=== PATIENT | male | born 1935 | race Caucasian/White ===

== ENCOUNTER 2022-05-25 21:22 | Emergency (ER) | payer MEDICARE, SELFPAY ==
[2022-05-25 21:22] VITALS: BP 127/74; PULSE 86; RESP 16; TEMP 32.7; O2SAT 99; BMI 19.5
--- NOTE | 2022-05-25 21:30 | XR_ITS ---
PROCEDURE INFORMATION: Exam: XR Chest Exam date and time: 05/25/2022 9:55 PM Age: 86 years old Clinical indication: Other: Hypothermia TECHNIQUE: Imaging protocol: Radiologic exam of the chest. Views: 1 view. COMPARISON: No relevant prior studies available. FINDINGS: Lungs: Mild elevation of the right hemidiaphragm. No consolidation. Pleural spaces: No pneumothorax. Heart/Mediastinum: Examination is limited by positioning. Somewhat prominent appearing mediastinum. No cardiomegaly. Bones/joints: No acute abnormality. IMPRESSION: Somewhat prominent appearing mediastinum which may be related to positioning. If there is concern for acute vascular abnormality, CTA can be obtained for further evaluation.
--- NOTE | 2022-05-25 21:30 | ECG_ITS ---
APPROVED REPORT Exam: Resting ECG HR:84 bpm ECG Measurements Heart Rate 84 AXES MA 169 P 50 QRSd 91 QRS 59 QT 376 T 12 QTc 416 Conclusion SINUS RHYTHM WITH FREQUENT VENTRICULAR PREMATURE COMPLEXES NONSPECIFIC T-WAVE ABNORMALITY ABNORMAL RHYTHM ECG UNCONFIRMED REPORT Electronically signed by : Bryson Stringer MD 05/26/2022 15:07:12
[2022-05-25 21:41] LABS: Basophils % 0.3 % (0.1-2.0); Eosinophils % 0.3 % (0.1-12.0); Hemoglobin 12.5 g/dL (14.1-18.0); Lymphocytes # 1.6 K/mm3 (0.7-4.5); Lymphocytes % 10.5 % (10-50); Mean Corpuscular HGB Conc 32.2 g/dL (31.8-35.4); Mean Corpuscular Hemoglobin 31.5 pg (27.0-31.2); Mean Corpuscular Volume 97.8 fl (80-94); Mean Platelet Volume 8.7 fl (7.4-10.4); Monocytes # 0.8 K/mm3 (0.1-1.0); Monocytes % 5.2 % (1.7-9.3); Neutrophils # 12.4 K/mm3 (1.8-7.8); Neutrophils % 83.7 % (37.0-80.0); Platelet Count 304 K/mm3 (142-424); Red Blood Count 3.98 M/mm3 (4.60-6.20); Red Cell Distribution Width 13.5 % (11.5-17.5); White Blood Count 14.9 K/mm3 (4.8-10.8)
--- NOTE | 2022-05-25 21:42 | CT_ITS ---
PROCEDURE INFORMATION: Exam: CT Abdomen And Pelvis With Contrast Exam date and time: 05/25/2022 10:10 PM Age: 86 years old Clinical indication: Other: Weakness TECHNIQUE: Imaging protocol: Computed tomography of the abdomen and pelvis with contrast. Radiation optimization: All CT scans at this facility use at least one of these dose optimization techniques: automated exposure control; mA and/or kV adjustment per patient size (includes targeted exams where dose is matched to clinical indication); or iterative reconstruction. Contrast material: ISOVUE; Contrast volume: 75 ml; Contrast route: IV; Other protocol: This patient has received [address] and 0 known cardiac nuclear medicine studies in the 12 months prior to the current study. COMPARISON: CR XR CHEST PORTABLE 05/25/2022 9:55 PM FINDINGS: Lungs: Hypoventilatory changes at the lung bases. No lobar consolidation. Liver: Normal. No mass. Gallbladder and bile ducts: No calcified stones. No ductal dilation. Pancreas: Normal enhancement. No ductal dilation. Spleen: No splenomegaly. Adrenal glands: No mass. Kidneys and ureters: Hypoattenuating renal lesions too small to characterize. No hydronephrosis. Stomach and bowel: Moderate to large stool burden within the colon. Scattered colonic diverticula. No bowel obstruction. Appendix: No evidence of appendicitis. Intraperitoneal space: No significant fluid collection. No free air. Vasculature: Calcified atherosclerosis. No aneurysm. Lymph nodes: No enlarged lymph nodes. Urinary bladder: Frost catheter within the urinary bladder which is decompressed and not well evaluated. Reproductive: No acute abnormality. Bones/joints: Degenerative changes of the spine. Scoliosis. No fracture. Soft tissues: No soft tissue swelling. IMPRESSION: No acute intra-abdominal findings. Chronic and incidental findings described above.
--- NOTE | 2022-05-25 21:42 | CT_ITS ---
PROCEDURE INFORMATION: Exam: CT Head Without Contrast Exam date and time: 05/25/2022 10:07 PM Age: 86 years old Clinical indication: Weakness, extremity TECHNIQUE: Imaging protocol: Computed tomography of the head without contrast. Radiation optimization: All CT scans at this facility use at least one of these dose optimization techniques: automated exposure control; mA and/or kV adjustment per patient size (includes targeted exams where dose is matched to clinical indication); or iterative reconstruction. Other protocol: This patient has received [address] and 0 known cardiac nuclear medicine studies in the 12 months prior to the current study. COMPARISON: No relevant prior studies available. FINDINGS: Brain: Small right frontoparietal subdural hemorrhage measuring up to 4 mm in thickness with mild local mass effect but no midline shift. White matter hypodensity which is nonspecific but compatible with small vessel occlusive change. Global atrophy. No mass. Cerebral ventricles: No ventriculomegaly. Paranasal sinuses: No fluid levels. Mastoid air cells: Visualized mastoid air cells are well aerated. Bones/joints: No acute fracture. Soft tissues: No significant soft tissue abnormality. IMPRESSION: Small right frontoparietal subdural hemorrhage measuring up to 4 mm in thickness with mild local mass effect but no midline shift.
[2022-05-25 21:43] LABS: Chloride 101 mmol/L (98-107); Potassium 4.2 mmoL/L (3.5-5.1); Sodium 134 mmol/L (136-145)
--- NOTE | 2022-05-25 21:43 | PC.NURSE ---
RAD at for CXR
[2022-05-25 21:46] LABS: Alanine Aminotransferase 132 U/L (12-78); Albumin Level 3.6 g/dl (3.5-5.0); Albumin/Globulin Ratio 1.6 (1.1-1.8); Alkaline Phosphatase 82 U/L (38-126); Anion Gap 8.2 mEq/L (5-15); Aspartate Amino Transferase 147 U/L (17-59); Bilirubin,Total 0.2 mg/dl (0.2-1.3); Blood Urea Nitrogen 23 mg/dl (9-20); Calcium 8.9 mg/dl (8.4-10.2); Carbon Dioxide 29 mmol/L (22.0-30.0); Creatinine Clearance Estimated 44 mL/min (50-200); Estimated Glomerular Filt Rate 158 ml/min (>60); GFR (African American) 192 ML/MIN (>60); Globulin 2.3 g/dL (1.3-3.2); Glucose 195 mg/dl (74-100); Total Protein,Serum 5.9 g/dl (6.3-8.2)
[2022-05-25 21:47] LABS: Coronavirus 19, PCR Not Detected (NotDetected); Influenza A, PCR Not Detected (NotDetected); Influenza B, PCR Not Detected (NotDetected)
[2022-05-25 21:47] LABS: Microscopic, Urine URINE MICROSCOPIC (MICROSCOPIC)
[2022-05-25 21:48] LABS: Activated Partial Thrombo Time 27.3 seconds (22.8-30.6); Lactic Acid 2.5 mmol/L (0.7-2.1); Prothrombin Time 11.8 seconds (10.1-12.5)
[2022-05-25 21:49] LABS: Appearance,Urine CLEAR (Clear); Bilirubin,Urine Negative (Negative); Blood, Urine Negative (Negative); Color,Urine YELLOW (Yellow); Glucose,Urine (UA) 1+ (Negative); Ketones,Urine TRACE (Negative); Leukocyte Esterase,Urine Negative (Negative); Nitrate,Urine Negative (Negative); Protein,Urine Negative (Negative); Urobilinogen,Urine 0.2 EU/dl (0.2)
[2022-05-25 21:52] LABS: C-Reactive Protein 7.1 mg/L (0-4)
[2022-05-25 21:59] LABS: RBC,Urine Occasional #/hpf (0-3); Squamous Epithelial Cell,Urine Occasional #/hpf (0-5)
[2022-05-25 22:01] LABS: Erythrocyte Sedimentation Rate 11 mm/hr (0-20)
[2022-05-25 22:02] LABS: Troponin I < 0.01 ng/ml (0.00-0.034)
--- NOTE | 2022-05-25 22:04 | PC.NURSE ---
Pt gone to RAD via stretcher
--- NOTE | 2022-05-25 22:20 | PC.NURSE ---
Pt back from RAD
[2022-05-25 22:23] LABS: ABG Base Excess -0.3 mmol/L (-2.4-2.3); ABG HCO3 24.5 mmhg (22.0-26.0); ABG Oxygen Saturation 98 % (90-100); ABG PCO2 40.2 mmhg (35.0-45.0); ABG PO2 114.6 mmhg (80-100); ABG TCO2 25.7 mmhg (23-27)
[2022-05-25 22:24] VITALS: TEMP 33.2
[2022-05-25 22:24] LABS: Allen's Test y; Oxygen ra %; Source rr
--- NOTE | 2022-05-25 22:24 | PC.NURSE ---
Rechecked rectal temp: 91.8
--- NOTE | 2022-05-25 22:29 | XR_ITS ---
PROCEDURE INFORMATION: Exam: XR Pelvis Exam date and time: 05/25/2022 10:46 PM Age: 86 years old Clinical indication: Other: Weakness; Additional info: Fall TECHNIQUE: Imaging protocol: Radiologic exam of the pelvis. Views: 1 or 2 view. COMPARISON: CT ABDOMEN PELVIS W CON 05/25/2022 10:10 PM FINDINGS: Bones/joints: Chronic appearing deformity of the right inferior and superior pubic rami. Degenerative changes of the lumbosacral spine. No acute fracture. Soft tissues: Contrast within the urinary bladder with superimposed Frost catheter. IMPRESSION: No acute findings.
[2022-05-25 22:30] VITALS: BP 102/55; PULSE 81; O2SAT 98
[2022-05-25 22:34] LABS: Thyroid Stimulating Hormone 4.87 uIU/mL (0.465-4.68)
--- NOTE | 2022-05-25 22:34 | [facility].EDWEAK ---
Discharge Plan Disposition Chief Complaint: Weakness Prescriptions Prescriptions: No Action atorvastatin 40 mg tablet 40 mg PO HS metformin 850 mg tablet 850 mg PO BID Label Comments: TAKE 1 TABLET BY MOUTH TWICE DAILY WITH MORNING MEAL AND WITH EVENING MEAL folic acid 400 mcg Tablet 0.4 mg PO DAILY levothyroxine 50 mcg tablet 50 mcg PO DAILY Label Comments: TAKE 1 TABLET BY MOUTH ONCE DAILY 2 HOURS PRIOR TO EATING OR DRINKING OR OTHER MEDICATIONS pantoprazole 40 mg tablet,delayed release (DR/EC) 40 mg PO BID Label Comments: TAKE 1 TABLET BY MOUTH EVERY 12 HOURS ferrous sulfate [FeroSul] 325 mg (65 mg iron) tablet 325 mg PO DAILY Label Comments: TAKE 2 TABLETS BY MOUTH ONCE DAILY aspirin 81 mg Tablet,Chewable 81 mg PO DAILY mecobalamin (vitamin B12) 1,000 mcg Tablet,Chewable 1,000 mcg PO DAILY Referrals Follow up/Referrals: Fannie Lewis APRN [Primary Care Provider] - See instructions Clinical Impressions Clinical Impression: Acute subdural hematoma, Acute alteration in mental status Stand Alone Forms Stand Alone Forms: Transfer Record - ED Discharge ED Provider: Marjorie (ED)Harshal Weakness HPI General Chief complaint: Weakness Stated complaint: AMS Time Seen by Provider: 05/25/22 21:45 Mode of Arrival: EMS Source of Information: Relative, EMS and Medical Record Limitations: Altered Mental Status Description of Symptoms (Recalled from ER Triage Doc. by RN): Per ems was called out for pt increasing weakness and not talking. History of Present Illness HPI Narrative: pt with change in mental status today - did have fall yesterday and son reports sig different now as he can usually speak ok and follow commands and ambulate with walker despite hx of dementia MD Complaint: generalized weakness and difficulty walking Onset (ago): hour(s) Duration: constant Location: generalized Migration: none Severity: moderate Associated symptoms: denies other symptoms Related Data Home Medications Medication Instructions Recorded Confirmed aspirin 81 mg chewable tablet 81 mg PO DAILY Heart 05/25/22 05/25/22 atorvastatin 40 mg tablet 40 mg PO HS Cholesterol 05/25/22 05/25/22 ferrous sulfate 325 mg (65 mg 325 mg PO DAILY Supplement 05/25/22 05/25/22 iron) tablet (FeroSul) folic acid 400 mcg tablet 0.4 mg PO DAILY Supplement 05/25/22 05/25/22 levothyroxine 50 mcg tablet 50 mcg PO DAILY Hypothyroid 05/25/22 05/25/22 mecobalamin (vitamin B12) 1,000 1,000 mcg PO DAILY Supplement 05/25/22 05/25/22 mcg chewable tablet metformin 850 mg tablet 850 mg PO BID Diabetes 05/25/22 05/25/22 pantoprazole 40 mg tablet,delayed 40 mg PO BID GERD 05/25/22 05/25/22 release Allergies Allergy/AdvReac Type Severity Reaction Status Date / Time No Known Allergies Allergy Verified 05/25/22 21:30 [facility] Disclaimer: The information contained in this section may have been updated after the patient was seen, as this information can be updated by other users. Medical History (Updated 05/25/22 @ 23:21 by Harshal Amador (ED)MD) Anemia Chronic pain Dementia Diabetes mellitus GERD (gastroesophageal reflux disease) High cholesterol HTN (hypertension) Hypothyroid Low iron Skin cancer Social History Smoking Status: Unknown if ever smoked alcohol intake: never current occupational status: retired Travel in the last 8 weeks: None ROS Obtained: Yes unobtainable due to mental status Physical Exam General General appearance: alert Head Head exam: normocephalic and other (no def trauma noted ) Eye Eye exam: Present PERRL and EOMI; Absent nystagmus ENT ENT exam: Present mucous membranes moist and other (no evid of tongue biting ) Neck Neck exam: Present trachea midline; Absent full ROM or meningismus Respiratory Respiratory exam: Present other (dec bs bilat ); Absent respiratory distress Cardiovascular Cardiovascular exa
--- NOTE | 2022-05-25 22:53 | PC.NURSE ---
Dr. Amador speaking with Dr. Patterson at [facility]
[2022-05-25 23:04] VITALS: TEMP 33.2
[2022-05-25 23:25] VITALS: BP 102/55; PULSE 81; RESP 18; TEMP 33.2; O2SAT 98
--- NOTE | 2022-05-25 23:48 | PC.NURSE ---
Rechecked rectal temp: 93.9
== END 2022-05-25 23:53 | disposition short-term general hospital (02) ==
PROVIDERS: Emergency Provider Emergency Medicine; PCP Nurse Practitioner Family
DX: I62.01 Nontraumatic acute subdural hemorrhage (principal); R41.82 Altered mental status, unspecified; D64.9 Anemia, unspecified; G89.29 Other chronic pain; F03.90 Unspecified dementia, unspecified severity, without behavioral disturbance, psychotic disturbance, mood disturbance, and anxiety; E11.9 Type 2 diabetes mellitus without complications; E78.00 Pure hypercholesterolemia, unspecified; I10 Essential (primary) hypertension; E03.9 Hypothyroidism, unspecified; Z85.828 Personal history of other malignant neoplasm of skin
CPT/HCPCS: 51702; 70450; 71045; 72170; 74177; 80053; 81001; 82803; 83605; 84439; 84443; 84484; 85025; 85610; 85651; 85730; 86140; 87040; 87077; 87186; 93005; 96360; 96361; 99285; C9803; Q9967; U0003; U0005